=== PATIENT | male | born 1975 | race African-American/Black ===

== ENCOUNTER 2018-10-21 23:01 | Emergency (ER) | payer SELFPAY | END 2018-10-22 00:45 | disposition left against medical advice (07) | LOC: ER 23:01 | DX: Z76.0 Encounter for issue of repeat prescription (principal); Z53.21 Procedure and treatment not carried out due to patient leaving prior to being seen by health care provider ==

== ENCOUNTER 2018-10-23 05:38 | Emergency (ER) | payer MEDICAID ==
[~2018-10-23] VITALS: Ht 172.7 cm; Wt 73.0 kg
[2018-10-23 05:43] VITALS: BP 127/82
== END 2018-10-23 10:51 | disposition left against medical advice (07) ==
LOC: ER 05:38
DX: Z53.21 Procedure and treatment not carried out due to patient leaving prior to being seen by health care provider (principal)

== ENCOUNTER 2020-02-26 19:39 | Emergency (ER) | payer MEDICAID ==
[~2020-02-26] VITALS: Ht 172.7 cm; Wt 73.0 kg
[2020-02-26 20:04] VITALS: BP 116/65
[2020-02-26] MEDS ORDERED: AZITHROMYCIN 500 MG TABLET PO ONE (21:15)
[2020-02-26] MEDS ORDERED: LIDOCAINE HCL/PF 1% 10 MG/ML 5ML VIAL IJ ONE (21:15)
[2020-02-26] MEDS ORDERED: CEFTRIAXONE SODIUM 250 MG/VIAL IM ONE (21:15)
[2020-02-26 23:55] LABS: CLARITY URINE CLEAR (CLEAR); COLOR URINE DARK YELLOW (YELLOW); KETONES URINE TRACE (NEGATIVE); LEUKOCYTE ESTERASE URINE 3+ (NEGATIVE); NITRITE URINE NEGATIVE (NEGATIVE); OCCULT BLOOD URINE NEGATIVE (NEGATIVE); PH URINE 5.5 (4.5-8.0); PROTEIN URINE TRACE (NEGATIVE); SPECIFIC GRAVITY URINE 1.029 (1.005-1.030)
== END 2020-02-27 00:04 | disposition home or self-care (01) ==
LOC: ER 19:39
DX: A74.9 Chlamydial infection, unspecified (principal)
CPT/HCPCS: 81003; 87086; 96372; 99283; J0696; J3490